=== PATIENT | female | born 1970 | race Caucasian/White ===

== ENCOUNTER 2017-07-02 10:02 | Emergency (ER) | payer OTHER ==
--- NOTE | 2017-07-02 10:22 | PHYS DOC ---
Adult General Chief Complaint Chief Complaint: RIB PAIN HPI HPI Patient is a 46 year old female who presents with complaint of right-sided rib pain. Patient states that she accidentally fell yesterday evening in her home. Patient states that she had stepped in snow and contracted into her home were it melted and caused her she is to become slick on her kitchen floor. This caused her to slip and fall onto her right side. Patient states that she partially caught herself with her right forearm and elbow. Patient did not hit her head or lose consciousness as a result of the fall. The patient states that she had soreness to the right side of her chest last night, however she states that it has significantly worsened upon awakening this morning. Patient rates her pain as 10 out of 10. Patient has not taken any medications for her symptoms at this time. The patient states that the pain worsens when she tries to take a deep breath. Patient denies any shortness of breath currently. The pain is sharp and localizes to the right anterior portion of her chest just below the right breast. Review of Systems Review of Systems Constitutional: Denies fever or chills [] Eyes: Denies change in visual acuity, redness, or eye pain [] HENT: Denies nasal congestion or sore throat [] Respiratory: Denies cough or shortness of breath [] Cardiovascular: Denies substernal chest pain or edema[] GI: Denies abdominal pain, nausea, vomiting, bloody stools or diarrhea [] : Denies dysuria or hematuria [] Musculoskeletal: Chest wall pain[] Integument: Denies rash or skin lesions [] Neurologic: Denies headache, focal weakness or sensory changes [] All other systems were reviewed and found to be within normal limits, except as documented in this note. Allergies Allergies Allergies Coded Allergies Type Severity Reaction Last Updated Verified No Known Drug Allergies 07/02/17 No Physical Exam Physical Exam Constitutional: Alert, afebrile, appears in mild to moderate discomfort. [] HENT: Normocephalic, atraumatic, bilateral external ears normal, oropharynx moist, no oral exudates, nose normal. [] Eyes: PERRLA, EOMI, conjunctiva normal, no discharge. [] Neck: Normal range of motion, no tenderness, supple, no stridor. [] Cardiovascular:Heart rate regular rhythm, no murmur [] Lungs & Thorax: Bilateral breath sounds clear to auscultation, point tenderness to right anterior portion of chest wall just below right breast, no palpable crepitus [] Abdomen: Bowel sounds normal, soft, no tenderness, no masses, no pulsatile masses. [] Skin: Warm, dry, no erythema, no rash. [] Back: No tenderness, no CVA tenderness. [] Extremities: No tenderness, no cyanosis, no clubbing, ROM intact, no edema. [] Neurologic: Alert and oriented X 3, normal motor function, normal sensory function, no focal deficits noted. [] Current Patient Data Vital Signs Vital Signs Date Time Temp Pulse Resp B/P (MAP) Pulse Ox O2 Delivery O2 Flow Rate FiO2 07/02/17 10:02 98.8 110 20 96 Room Air Lab Results None performed EKG EKG Not performed[] Radiology/Procedures Radiology/Procedures [address] [address] IMAGING REPORT Signed PATIENT: JOEY HUYNH ACCOUNT: [id number] : 1970 LOCATION: ER AGE: 46 SEX: F EXAM STATUS: PRE ER ORD. PHYSICIAN: GRACE SOLIZ MD REASON: right rib pain PROCEDURE: RIBS RIGHT AND PA CHEST Examination: PA view the chest and right RIBS History: History of fall, right rib pain Comparison: None available Findings: The cardiomediastinal silhouette grossly appears unremarkable. There is no acute infiltrate or visualized pneumothorax. No evidence of displaced right rib fracture. Impression: 1. No acute cardiopulmonary findings. 2. No evidence of displaced right rib fracture. DICTATED AND SIGNED BY: NABOR BRYAN MD DATE: 07/02/17 1023 CC: GRACE SOLIZ MD; PCP,NO ~ [] Course & Med Decision Making Course & Med Decision Making Pertinent Labs and Imaging studies reviewed. (See chart for details) The patient's symptoms appear consistent with costochondral contusion. Patient was given IM morphine. Patient will be discharged with prescriptions for Naprosyn and [employer] for continued outpatient treatment. Advise follow-up in 5-7 days with patient's primary doctor if symptoms are not improving and return to emergency department for any worsening symptoms. Patient voiced understanding and in agreement with treatment plan. Dragon Disclaimer Dragon Disclaimer This electronic medical record was generated, in whole or in part, using a voice recognition dictation system. Departure Departure: Impression: Primary Impression: Contusion of rib on right side Disposition: HOME, SELF-CARE Condition: IMPROVED Referrals: PCP,RODERICK (PCP) Patient Instructions: Rib Contusion Additional Instructions: Follow-up with your primary doctor in 5-7 days of symptoms are not improving. Return to the emergency department for any worsening symptoms. Scripts Hydrocodone Bit/Acetaminophen (NORCO 5-325 TABLET) 1 Each Tablet 1-2 TAB PO Q4-6HRS Y for PAIN, #20 TAB Prov: GRACE SOLIZ MD 07/02/17 Naproxen (NAPROSYN) 500 Mg Tablet 1 TAB PO BID, #15 TAB 0 Refills Prov: GRACE SOLIZ MD 07/02/17 Problem Qualifiers Primary Impression: Contusion of rib on right side Encounter type: initial encounter Qualified Codes: S20.211A - Contusion of right front wall of thorax, initial encounter GRACE SOLIZ MD Jul 02, 2017 10:22
--- NOTE | 2017-07-02 10:28 | RAD ---
Examination: PA view the chest and right RIBS History: History of fall, right rib pain Comparison: None available Findings: The cardiomediastinal silhouette grossly appears unremarkable. There is no acute infiltrate or visualized pneumothorax. No evidence of displaced right rib fracture. Impression: 1. No acute cardiopulmonary findings. 2. No evidence of displaced right rib fracture.
[2017-07-02] MEDS ORDERED: HYDR-971 PO (10:52)
[2017-07-02] MEDS ORDERED: NAPR-683 PO (10:52)
[2017-07-02 11:02] VITALS: BP 141/80
[2017-07-02] MEDS ORDERED: MORPHINE SULFATE 4 MG/ML DISP.SYRIN. IM ONE (11:10)
== END 2017-07-02 11:23 | disposition home or self-care (01) ==
LOC: ER 10:02
DX: S20.211A Contusion of right front wall of thorax, initial encounter (principal); W00.0XXA Fall on same level due to ice and snow, initial encounter; Y93.89 Activity, other specified; Y99.8 Other external cause status; Y92.090 Kitchen in other non-institutional residence as the place of occurrence of the external cause
CPT/HCPCS: 71101; 96372; 99284; J2270